=== PATIENT | female | born 1955 | race Hispanic/Latino ===

== ENCOUNTER → 2017-11-06 | Outpatient (CLI) | payer MEDICARE | LOC: OIH 13:04 | PROVIDERS: ATTEND Internal Medicine | DX: M54.16 Radiculopathy, lumbar region (principal); Z90.49 Acquired absence of other specified parts of digestive tract | CPT/HCPCS: 72110 ==

== ENCOUNTER → 2018-10-29 | Outpatient (CLI) | payer OTHER, MEDICARE | END | disposition home or self-care (01) | LOC: OIH 14:51 | PROVIDERS: ATTEND Internal Medicine | DX: I70.0 Atherosclerosis of aorta (principal); I10 Essential (primary) hypertension | CPT/HCPCS: 71046; 72100 ==

== ENCOUNTER → 2019-07-08 | Outpatient (CLI) | payer OTHER, MEDICARE | END | disposition home or self-care (01) | LOC: OIH 13:37 | PROVIDERS: ATTEND Internal Medicine | DX: M47.816 Spondylosis without myelopathy or radiculopathy, lumbar region (principal); I70.0 Atherosclerosis of aorta; M89.38 Hypertrophy of bone, other site | CPT/HCPCS: 72100 ==

== ENCOUNTER → 2020-01-07 | Outpatient (CLI) | payer MEDICARE | END | disposition home or self-care (01) | LOC: OIH 10:43 | PROVIDERS: ATTEND Internal Medicine | DX: R05 Cough (principal) | CPT/HCPCS: 71046 ==

== ENCOUNTER → 2021-04-22 | Outpatient (CLI) | payer OTHER, MEDICARE | END | disposition home or self-care (01) | LOC: OIH 10:24 | PROVIDERS: ATTEND Internal Medicine | DX: R05 Cough (principal); J45.909 Unspecified asthma, uncomplicated | CPT/HCPCS: 71046 ==

== ENCOUNTER → 2024-05-01 | Outpatient (CLI) | payer MEDICARE | END | disposition home or self-care (01) | LOC: RAH 09:23 | PROVIDERS: ATTEND Internal Medicine | DX: M54.50 Low back pain, unspecified (principal) | CPT/HCPCS: 72100 ==

== ENCOUNTER → 2025-06-02 | Outpatient (CLI) | payer OTHER, MEDICARE ==
--- NOTE | 2025-06-02 20:44 | HMCIMG ---
EXAM: XR Right Foot, 2 Views. CLINICAL HISTORY: 70 year old female with right foot sprain COMPARISON: None provided. FINDINGS: BONES: Osteopenia. JOINTS: Mild hallux valgus deformity seen. The joint spaces are normal. SOFT TISSUES: Extensive vascular calcifications seen. The soft tissues are unremarkable. IMPRESSION: 1. No acute osseous abnormality related to the right foot sprain. 2. Mild hallux valgus deformity. /[facility]
== END | disposition home or self-care (01) ==
LOC: RAH 11:30
PROVIDERS: ATTEND Internal Medicine
DX: S93.601A Unspecified sprain of right foot, initial encounter (principal); M20.11 Hallux valgus (acquired), right foot; M85.871 Other specified disorders of bone density and structure, right ankle and foot; X58.XXXA Exposure to other specified factors, initial encounter; Y93.89 Activity, other specified; Y92.89 Other specified places as the place of occurrence of the external cause; Y99.8 Other external cause status
CPT/HCPCS: 73620